=== PATIENT | male | born 1970 | race African-American/Black ===

== ENCOUNTER 2021-09-14 20:37 | Emergency (ER) | payer MEDICAID ==
[~2021-09-14] VITALS: Ht 182.9 cm; Wt 94.0 kg
[2021-09-14 22:19] LABS: EOSINOPHILS % 3.3 % (0.0-5.0); HEMATOCRIT. 39.6 % (42.0-52.0); HEMOGLOBIN. 13.4 g/dL (14.0-18.0); LYMPHOCYTES % 36.7 % (20.0-50.0); MEAN CORPUSCULAR HEMOGLOBIN 28.3 pg (28.0-32.0); MEAN CORPUSCULAR VOLUME 83.3 fL (80.0-94.0); MEAN PLATELET VOLUME 7.6 fl (7.4-10.4); MONOCYTES % 5.1 % (2.0-8.0); NEUTROPHILS % 53.9 % (40.0-76.0); PLATELET 442 x1000/uL (130-400); RED BLOOD CELL COUNT 4.76 mill/uL (4.7-6.1); RED CELL DISTRIBUTION WIDTH 16.7 % (11.6-14.6)
[2021-09-14 22:51] LABS: *AMPHETAMINES SCREEN URINE NEGATIVE (NEGATIVE); *BARBITURATES SCREEN URINE NEGATIVE (NEGATIVE); *BENZODIAZEPINES SCREEN URINE NEGATIVE (NEGATIVE); *COCAINE SCREEN URINE NEGATIVE (NEGATIVE); CANNABINOID URINE SCREEN NEGATIVE (NEGATIVE); METHADONE URINE SCREEN NEGATIVE (NEGATIVE); OPIATES URINE SCREEN NEGATIVE (NEGATIVE)
[2021-09-14 22:52] LABS: PHENCYCLIDINE URINE SCREEN PRESUMTIVE POSITIVE (NEGATIVE)
[2021-09-14 23:00] LABS: CHLORIDE 109 mEq/L (98-107)
[2021-09-14 23:06] LABS: ETHANOL BLOOD 212 mg/dL
[2021-09-14 23:30] VITALS: BP 158/84
== END 2021-09-15 01:02 | disposition home or self-care (01) ==
LOC: ER 20:37 → EDBD 20:37 → ER 09-15 01:02
DX: T40.991A Poisoning by other psychodysleptics [hallucinogens], accidental (unintentional), initial encounter (principal); G92.8 Other toxic encephalopathy; F16.129 Hallucinogen abuse with intoxication, unspecified; F10.129 Alcohol abuse with intoxication, unspecified; Y90.7 Blood alcohol level of 200-239 mg/100 ml; Y92.480 Sidewalk as the place of occurrence of the external cause; R03.0 Elevated blood-pressure reading, without diagnosis of hypertension; Z71.51 Drug abuse counseling and surveillance of drug abuser; Z71.41 Alcohol abuse counseling and surveillance of alcoholic
CPT/HCPCS: 36415; 80053; 80305; 80320; 85025; 99283; G0480

== ENCOUNTER 2022-12-04 20:51 | Emergency (ER) | payer MEDICAID, OTHER ==
[~2022-12-04] VITALS: Ht 177.8 cm; Wt 82.0 kg
[2022-12-04 20:57] VITALS: BP 209/138; PULSE 90; RESP 16; O2SAT 100
[2022-12-04] MEDS ORDERED: ACETAMINOPHEN 325MG TABLET PO ONE (21:15)
[2022-12-04 21:25] VITALS: TEMP 99
== END 2022-12-04 22:04 ==
LOC: ER 20:51
DX: R68.89 Other general symptoms and signs (principal); I10 Essential (primary) hypertension; F12.10 Cannabis abuse, uncomplicated
CPT/HCPCS: 73130; 99283